=== PATIENT | male | born 1985 ===

== ENCOUNTER 2022-07-27 05:40 | Day surgery (SDC) | payer OTHER ==
[~2022-07-27 05:40] MED LIST: ATORVAST PO; GABAPEN PO; GLIPIZIDE XL5 MG PO; HUMUL; LANTUS SOL100 UNIT/1; ZESTRIL20 MG PO
[2022-07-27] MEDS ORDERED: PERCOCET 5-3251 EACH PO (14:50)
== END 2022-07-27 16:35 | disposition home or self-care (01) ==
LOC: CIR.AMB 05:40 → EDSEX 05:40 → CIR.AMB 07:00
PROVIDERS: ATTEND Surgery
DX: N52.9 Male erectile dysfunction, unspecified (principal); N48.6 Induration penis plastica; Z20.822 Contact with and (suspected) exposure to COVID-19; Z88.8 Allergy status to other drugs, medicaments and biological substances
CPT/HCPCS: 54405; 54112; 54360; C1813

== ENCOUNTER 2022-08-27 02:26 | Emergency (ER) | payer OTHER ==
[~2022-08-27] VITALS: Ht 170.2 cm; Wt 88.5 kg
[~2022-08-27 02:26] MED LIST changes: +PERCOCET 5-3251 EACH PO
== END 2022-08-27 08:35 ==
LOC: ER 02:26
DX: T83.490A Other mechanical complication of implanted penile prosthesis, initial encounter (principal); Y83.9 Surgical procedure, unspecified as the cause of abnormal reaction of the patient, or of later complication, without mention of misadventure at the time of the procedure; Y92.9 Unspecified place or not applicable